=== PATIENT | male | born 1990 | race African-American/Black ===

== ENCOUNTER 2021-03-19 17:21 | Emergency (ER) | payer OTHER ==
[2021-03-19 17:28] VITALS: BP 113/77; PULSE 79; TEMP 98.3; BMI 23.6
[2021-03-19] MEDS ORDERED: ACETAMINOPHEN 325 MG TABLET (FP) PO ONE (17:51)
[2021-03-19] MEDS ORDERED: LIDOCAINE 5% TOPICAL PATCH TP ONE (17:51)
[2021-03-19] MEDS ORDERED: CYCLOBENZAPRINE HCL 10 MG TABLET (FP) PO ONE (17:51)
[2021-03-19] MEDS ORDERED: CYCLOBENZAPRINE HCL 10 MG TABLET (FP) ONE (18:20)
[2021-03-19] MEDS ORDERED: LIDOCAINE 5% TOPICAL PATCH ONE (18:21)
[2021-03-19] MEDS ORDERED: ACETAMINOPHEN 325 MG TABLET (FP) ONE (18:22)
[2021-03-19] MEDS ORDERED: KETOROLAC TROMETHAMINE 30 MG/1 ML VIAL IM ONE (21:26)
[2021-03-19] MEDS ORDERED: KETOROLAC TROMETHAMINE 30 MG/1 ML VIAL ONE (21:35)
== END 2021-03-19 21:45 | disposition home or self-care (01) ==
LOC: JER 17:21
DX: S13.9XXA Sprain of joints and ligaments of unspecified parts of neck, initial encounter (principal); S46.012A Strain of muscle(s) and tendon(s) of the rotator cuff of left shoulder, initial encounter; S33.5XXA Sprain of ligaments of lumbar spine, initial encounter
CPT/HCPCS: 70486-TC; 71046-TC-FY; 71120-TC-FY; 72125-TC; 72128-TC; 72131-TC; 73030-TC-LT-FY; 99285-25